=== PATIENT | female | born 1950 | race Caucasian/White ===

== ENCOUNTER 2018-08-24 13:16 | Inpatient (IN) | payer MEDICARE ==
[~2018-08-24] VITALS: Ht 170.2 cm; Wt 68.1 kg
[2018-08-24] MEDS ORDERED: COZAAR50 MG PO (13:46)
[2018-08-24] MEDS ORDERED: POTASSIUM CHLO10 ME1 PO (13:46)
[2018-08-24] MEDS ORDERED: ACETAZOLAMIDE250 MG PO (13:47)
[2018-08-24] MEDS ORDERED: BENZTROPINE MESY1 MG PO (13:47)
[2018-08-24] MEDS ORDERED: LEVOXYL25 MCG PO (13:47)
[2018-08-24] MEDS ORDERED: ADVAIR HFA 230-12 GM INH (13:48)
[2018-08-24] MEDS ORDERED: IPRAT-ALBUT 0.5-3 ML UPD (13:49)
[2018-08-24] MEDS ORDERED: INCRUSE ELLI62.5 MCG INH (13:50)
[2018-08-24] MEDS ORDERED: GINKGO BILOBA120 MG PO (13:50)
[2018-08-24] MEDS ORDERED: ZYPREXA5 MG PO (13:51)
[2018-08-24] MEDS ORDERED: HALDOL5 MG/ML IM (13:52)
[2018-08-24] MEDS ORDERED: GEODON40 MG PO (13:52)
[2018-08-24] MEDS ORDERED: COLACE100 MG PO (13:53)
--- NOTE | 2018-08-24 14:07 | NUR ---
URINE SAMPLE COLLECTED VIA CLEAN CATCH, SAMPLE SENT TO THE LAB.
--- NOTE | 2018-08-24 14:07 | NUR ---
PT MOVED TO ROOM E12 FROM ROOM T3 TO BE IN CLOSER VIEW OF THE NURSES STATION.
[2018-08-24 14:23] LABS: APPEARANCE SL CLDY (CLEAR); BILIRUBIN NEGATIVE (NEGATIVE); COLOR YELLOW (YELLOW); GLUCOSE NEGATIVE (NEGATIVE); KETONE SMALL mg/dL (NEGATIVE); NITRITE NEGATIVE (NEGATIVE); PROTEIN NEGATIVE (NEGATIVE); SPECIFIC GRAVITY 1.005 (1.005-1.020)
[2018-08-24 14:43] LABS: APTT 26.7 SECONDS (22.8-39.4); INR 1.03 (0.85-1.17)
--- NOTE | 2018-08-24 14:58 | NUR ---
PT ALERT, SITTING UPRIGHT IN BED WATCHING TV. PT CONTINUES TO REQUEST TO LEAVE AND GO SMOKE. WILL CONTINUE ATTEMPTING TO REORIENT FREQUENTLY. RESPIRATIONS EVEN AND UNLABORED. PT DENIES ANY PAIN AT THIS TIME. PT REFUSES TO KEEP VS EQUIPMENT IN PLACE, REMOVES ALL EQUIPMENT EACH TIME IT IS REAPPLIED. CALL LIGHT IN REACH, WILL CONTINUE TO MONITOR.
[2018-08-24 14:59] LABS: ALBUMIN 3.3 g/dL (3.4-5.0); ALKALINE PHOSPHATASE 112 U/L (46-116); ALT (SGPT) 16 U/L (10-68); BILIRUBIN - TOTAL 0.24 mg/dL (0.2-1.3); CALC OSMOLALITY 293 mosm/kg (275-300); CALCIUM 9.2 mg/dL (8.5-10.1); CARBON DIOXIDE 31.9 mmol/L (21.0-32.0); CHLORIDE - SERUM 109 mmol/L (98-107); CREATININE - SERUM 0.7 mg/dL (0.6-1.3); GLUCOSE 96 mg/dL (74-106); POTASSIUM - SERUM 3.6 mmol/L (3.5-5.1); PROTEIN - SERUM 7.4 g/dL (6.4-8.2); SODIUM 146 mmol/L (136-145); UREA NITROGEN 20 mg/dL (7-18); eGFR NON AFRICAN AMERICAN 88 mL/min (90-120)
[2018-08-24 15:00] LABS: CKMB 1.4 U/L (0.0-3.6); CREATINE KINASE 63 UL (21-215); MAGNESIUM - SERUM 1.8 mg/dL (1.8-2.4)
[2018-08-24 15:03] LABS: TROPONIN-I < 0.017 ng/mL (0.000-0.060)
[2018-08-24 15:06] LABS: BASOPHILS 0 % (0-2); EOSINOPHILS 0.5 % (0-7); HEMATOCRIT 39.9 % (36.0-48.0); LYMPHOCYTES 34.1 % (15-50); MCH 32.5 pg (26.0-34.0); MCHC 32.6 g/dL (31.0-37.0); MCV 99.8 fL (80.0-100.0); MEAN PLATELET VOLUME 11.4 fL (7.4-10.4); MONOCYTES 6.3 % (2-11); NEUTROPHILS 59.1 % (40-80); PLATELET COUNT 130 10x3/uL (130-400); RDW 13.6 % (11.5-14.5); WBC 6.1 10x3/uL (4.8-10.8)
[2018-08-24 15:18] VITALS: BP 144/53
--- NOTE | 2018-08-24 15:50 | NUR ---
PT RETURNED TO ED VIA STRETCHER FROM CT AT THIS TIME.
--- NOTE | 2018-08-24 16:46 | NUR ---
PT SITTING AT THE FOOT OF THE BED. RESPIRATIONS EVEN AND UNLABORED. PT REMAINS ALERT AND ORIENTED TO PERSON ONLY. VS EQUIPMENT FOUND ON FLOOR. O2 NC NOT IN PLACE. ALL REAPPLIED. TREATING PROVIDER AWARE.
--- NOTE | 2018-08-24 17:02 | NUR ---
PT PULLED OUT HER IV. TREATING PROVIDER NOTIFIED. CATHETER INTACT.
--- NOTE | 2018-08-24 18:13 | NUR ---
WILL ADMINISTER ORDERED ZITHROMAX ONCE ORDERED ROCEPHIN IS COMPLETE.
[2018-08-24 18:14] VITALS: BP 117/57
--- NOTE | 2018-08-24 18:45 | NUR ---
PT LYING IN BED, RESPIRATIONS EVEN AND UNLABORED. IV INFUSING ORDERED WITHOUT SIGNS OF INFILTRATION. NO SIGNS OF DISTRESS. WILL CONTINUE TO MONITOR.
[2018-08-24 19:00] VITALS: BP 113/64
--- NOTE | 2018-08-24 19:08 | NUR ---
HANDOFF REPORT GIVEN TO BELEM COE
[2018-08-24 20:00] VITALS: BP 135/65
--- NOTE | 2018-08-24 20:04 | NUR ---
PT BED LINEN CHANGED, CLEAN DRY BREIF PUT ON PT AND GIVEN WARM BLANKETS.
--- NOTE | 2018-08-24 20:47 | NUR ---
PT ARRIVED TO FLOOR VIA STRECHER. PT RR EVEN AND UNLABORED. PT SLEEPING AND ROLLING AROUND IN BED. PT UNABLE TO ANSWER QUESTIONS FOR HISTORY. BED ALARM IN PLACE, SIDE RAILS UP X2, CALL LIGHT WITHIN REACH. WILL CONTINUE TO MONITOR.
[2018-08-24 23:54] VITALS: BP 135/65
--- NOTE | 2018-08-25 00:11 | NUR ---
Patient remains drowsy and lethargic, PIV in right lower arm is SL, coban wrap on to hopefully promote in preventing patient from pulling same out. Refusing to answer questions, completed admit as much as able from information sent in by [facility] where patient resides. Respirations easy and regular, no signs of distress at this time.
[2018-08-25 00:30] VITALS: BP 167/75
[2018-08-25 04:34] LABS: BASOPHILS 0 % (0-2); EOSINOPHILS 1.2 % (0-7); HEMATOCRIT 36.2 % (36.0-48.0); LYMPHOCYTES 35.5 % (15-50); MCH 32.4 pg (26.0-34.0); MCHC 33.1 g/dL (31.0-37.0); MEAN PLATELET VOLUME 11.1 fL (7.4-10.4); MONOCYTES 10.8 % (2-11); NEUTROPHILS 52.5 % (40-80); PLATELET COUNT 114 10x3/uL (130-400); RDW 13.5 % (11.5-14.5)
[2018-08-25 04:49] LABS: MCV 97.8 fL (80.0-100.0)
[2018-08-25 04:50] LABS: ALBUMIN 2.6 g/dL (3.4-5.0); ALKALINE PHOSPHATASE 89 U/L (46-116); ALT (SGPT) 13 U/L (10-68); BILIRUBIN - TOTAL 0.29 mg/dL (0.2-1.3); CALC OSMOLALITY 291 mosm/kg (275-300); CALCIUM 8.9 mg/dL (8.5-10.1); CARBON DIOXIDE 27.9 mmol/L (21.0-32.0); CHLORIDE - SERUM 111 mmol/L (98-107); CREATININE - SERUM 0.6 mg/dL (0.6-1.3); GLUCOSE 88 mg/dL (74-106); POTASSIUM - SERUM 3.4 mmol/L (3.5-5.1); SODIUM 146 mmol/L (136-145); UREA NITROGEN 18 mg/dL (7-18); eGFR NON AFRICAN AMERICAN > 90 mL/min (90-120)
[2018-08-25 09:13] VITALS: BP 136/75
--- NOTE | 2018-08-25 11:52 | NUR ---
patient is up and dressed. she wants to go home. called the dr and got her home medications restarted. she is calmer now.
[2018-08-25 12:10] VITALS: BP 135/69
[2018-08-25 13:55] VITALS: Ht 170.2 cm; Wt 68.1 kg
--- NOTE | 2018-08-25 15:53 | NUR ---
NEW ORDER TO MOVE PATIENT TO ICU ON 72 HOUR HOLD FOR PHYCOSIS. SHE IS RESTING AT THIS TIME.
--- NOTE | 2018-08-25 16:02 | NUR ---
PATIENT IS GOING TO GO TO PSYCH FLOOR. THERE IS ROOM AND THEY WILL ACCEPT HER NOW. SPOKE TO MAINTENANCE GROUNDSKEEPER AND SHE IS CALLING BOB AT THIS TIME. CALLING TO GIVE REPORT AT THIS TIME. NURSE DIANA IS THE NURSE.
[2018-08-25 16:39] VITALS: BP 133/38
[2018-08-25] MEDS ORDERED: ZITHROMAX500 MG PO (17:10)
[2018-08-25] MEDS ORDERED: PROTONIX40 MG PO (17:11)
[2018-08-25] MEDS ORDERED: FLORAJEN3 CAPS460 MG PO (17:11)
[2018-08-25] MEDS ORDERED: NICOTINE PATCH TRANSDERM (17:15)
--- NOTE | 2018-08-25 17:49 | NUR ---
I have reviewed this patient and I concur with the Shift Assessment completed by the Licensed Practical Nurse today this shift.
--- NOTE | 2018-08-25 17:54 | NUR ---
WILL COSIGN WITH A SECOND NURSE BECAUSE PATIENT IS UNABLE TO SIGN DISCHARGE PAPER WORK AT THIS TIME. WHEN ATTEMPTING TO CONTACT FAMILY , THE NUMBER LISTED WAS FOUND TO NOT BE VALID. TONY BERG IS AWARE. DR HERNANDEZ IS AWARE OF TRANSFER, AND NURSE IN PSYCH HAS BEEN GIVEN REPORT. IV REMOVED FROM PATIENTS ARMS AND ANTIBIOTICS HAVE BEEN CHANGED TO P.O. IV REMOVED FROM LEFT ARM WITH CATHETER INTACT. PATIENT TOLERATED. ALL PATIENT BELONGINGS HAVE BEEN GATHERED AND SHE WILL GO DOWNSTAIRS IN A WHEEL CHAIR WITH ASSISTANCE.
--- NOTE | 2018-08-25 18:11 | NUR ---
PATIENT HAS BEEN DISCHARGED TO PSYCH FLOOR. ALL BELONGINGS HAVE BEEN REMOVED FROM THE ROOM. SHE IS BEING BROUGHT DOWN IN A WHEEL CHAIR BY STAFF. SHE IS SMILING AND BEING AGREEABLE AT THIS TIME.
--- NOTE | 2018-08-27 09:15 | MORECARE ---
CASE MANAGEMENT DISCHARGE SUMMARY PATIENT: OMARI HARLEY UNIT: [id number] ADM DATE: 08/24/18 AGE: 67 : 48 SEX: F ROOM/BED: D.2103 AUTHOR: LEENA MCDERMOTT PHYSICIAN: REFERRING PHYSICIAN: JAMES HERNANDEZ MD DATE OF SERVICE: 08/27/18 Discharge Plan Patient Name: OMARI HARLEY [facility] [facility] 1950 Planned Disposition: Psych facility Anticipated Discharge Date: 08/25/18 Discharge Date: 08/25/2018 Expected LOS: 1 Initial Reviewer: [email or web address] Initial Review Date: 08/27/2018 Generated: 08/27/18 10:14 am Patient Name: OMARI HARLEY Page [id number] at 0915 All edits/amendments must be made on the electronic document DICTATION DATE: 08/27/18913 COATING MANAGER: ADONAY 08/27/18913 RPT#: [id number] DC DATE:08/25/18 STATUS: DIS IN [facility] [address] [place] [address] END OF REPORT
== END 2018-08-25 18:12 | disposition short-term general hospital (02) | DRG 193 ==
LOC: D.ER 13:16 → D.EDHOLD 18:54 → D.M2 18:54
PROVIDERS: Family Medicine; ADMIT Internal Medicine Nephrology; ATTEND Internal Medicine Nephrology
DX: J18.1 Lobar pneumonia, unspecified organism (principal); G92 Toxic encephalopathy; J44.1 Chronic obstructive pulmonary disease with (acute) exacerbation; J44.0 Chronic obstructive pulmonary disease with (acute) lower respiratory infection; F17.213 Nicotine dependence, cigarettes, with withdrawal; I10 Essential (primary) hypertension; F20.9 Schizophrenia, unspecified; E04.9 Nontoxic goiter, unspecified; K59.09 Other constipation

== ENCOUNTER 2018-08-25 16:42 | Inpatient (IN) | payer MEDICARE ==
[~2018-08-25] VITALS: Ht 162.6 cm; Wt 68.0 kg
--- NOTE | ~2018-08-25 | PN ---
PATIENT:OMARI AHRLEY MEDICAL RECORD: [id number] LOCATION:[facility] ADMISSION DATE: 08/25/18 PROGRESS NOTE DATE OF SERVICE: 09/01/2018 SUBJECTIVE: Ms. Harley is a 68-year-old female with a long history of schizophrenia who came to the hospital secondary to right lower lobe pneumonia. While up on the floor, she became increasingly paranoid, refusing standard bed and was transferred down here. The patient's behavior is more labile now. One interview in nursing notes even just a few hours ago, she was pleasant, cooperative, but by the time I saw her, she was irritable, paranoid. She had tripped and she had felt like someone was holding her knees and that tripped her on purpose. Nursing notes that she is having auditory or visual hallucinations and gradually changing her medication to a single regimen medication that she was on 3 low dose antipsychotics and have selected Zyprexa. She is currently on a total of 20 of Zyprexa now, 5 in the morning, 15 at night and she is down at 20 mg of Geodon. She is eating 30, 10 and 100%. Last bowel movement was on the 20th and sleeping 7.75 hours. OBJECTIVE: LATEST VITAL SIGNS: 97.7, 88, 18, 102/46, 95%. ASSESSMENT: Unchanged. PLAN: We will continue current dosing, olanzapine was just increased yesterday and monitor trend and paranoid behaviors and adjust Geodon. TRANSINT:[id number] Voice Confirmation ID: [id number] DOCUMENT ID: [id number] ROSI HI MD CC: [id number] DICTATION DATE: 09/01/18 1347 LEAF TINNER: 09/01/18 1453 ADM IN [place] [id number] [place] [address]
[~2018-08-25 16:42] MED LIST: ACETAZOLAMIDE250 MG PO; ADVAIR HFA 230-12 GM INH; BENZTROPINE MESY1 MG PO; COLACE100 MG PO; COZAAR50 MG PO; GEODON40 MG PO; GINKGO BILOBA120 MG PO; HALDOL5 MG/ML IM; INCRUSE ELLI62.5 MCG INH; IPRAT-ALBUT 0.5-3 ML UPD; LEVOXYL25 MCG PO; POTASSIUM CHLO10 ME1 PO; ZYPREXA5 MG PO
[2018-08-25] MEDS ORDERED: ZITHROMAX500 MG PO (17:10)
[2018-08-25] MEDS ORDERED: PROTONIX40 MG PO (17:11)
[2018-08-25] MEDS ORDERED: FLORAJEN3 CAPS460 MG PO (17:11)
[2018-08-25] MEDS ORDERED: NICOTINE PATCH TRANSDERM (17:15)
[2018-08-25 18:25] VITALS: BP 133/74; BMI 23.5
--- NOTE | 2018-08-25 19:30 | NUR ---
The patient is admitted to [facility] from Med/Surg. She is delusional and talking monsensical. She is labile, yells and points her finger at times and she is pleasant at other times. She can ambulate, but she is unsteady. She does not want anyone to know she is here. Med/Surg nurse Macrina tried to call her family. Dr. Roberts did put her on a 72 hour hold, but the patient did consent to be on this unit. She does have shoe laces in her tennis shoes and she had 2 lighters in her pockets. She has a couple of purses. The patient has wheezes in her right lower lobe. She is shown to her room as she does not feel well, she is weak.
[2018-08-25 20:57] VITALS: BP 152/82
--- NOTE | 2018-08-26 03:25 | NUR ---
B) Patient is alert and oriented to person and place, very confused, jumping from subject to subject , restless at times, wanting to smoke, hungry and wanting dinner I) Administered scheduled medications as ordered, found her some snacks , redirected as needed, R) Mediation compliant, liable and confused, P) Continue plan of care.
[2018-08-26 07:04] LABS: LDL-HDL RATIO 1.6 ratio (1.5-3.5); THYROID STIMULATING HORMONE 4.55 uIU/mL (0.36-3.74)
--- NOTE | 2018-08-26 07:45 | NUR ---
PT IS ALERT AND ORIENTED TO PERSON AND PLACE. VERY CONFUSED AND RESTLESS AT THIS TIME. PT CALM AND COOPERATIVE WITH ASSESSMENT. REDIRECT AND REORIENT NEEDED. PRESCRIBED MEDS PROVIDED. MED COMPLIANT. FALL PRECAUTIONS IN PLACE. WILL CONTINE TO MONITOR Q 15 MINUTESA FOR SAFETY. WILL CPOC.
[2018-08-26 20:19] VITALS: BP 132/61
[2018-08-27 07:53] VITALS: BP 110/65
[2018-08-27 11:45] VITALS: BMI 23.5
--- NOTE | 2018-08-27 13:16 | NUR ---
B) PT IS AWAKE AND ALERT X 3. DENIES ANY THOUGHTS OF SELF HARM. I) PRESCRIBED MED PROVIDED R) MED COMPLIANT P) WILL CPOC
[2018-08-27 14:21] VITALS: Ht 162.6 cm; Wt 68.0 kg
[2018-08-27 22:18] VITALS: BP 117/64
--- NOTE | 2018-08-28 00:12 | NUR ---
PATIENT IS COOPERATIVE, CONFUSED AT TIMES, COMPLIANT WITH MEDS, STAYS TO HERSELF EVEN WHEN SHE'S IN A GROUP. NO ADVERSE REACTION NOTED. WILL FOLLOW POC
[2018-08-28 07:31] LABS: RAPID PLASMA REAGIN Non Reactive (Non Reactive)
--- NOTE | 2018-08-28 08:30 | NUR ---
PATIENT IS AWAKE AND ALERT X 3. SHE DENIES ANY SELF-HARM. REDIRECT AND REORIENT NEEDED. ADMINISTER SCHEDULED MEDICATIONS. CONPLIANT WITH MEDS. WILL CONTINUE POC.
[2018-08-28 08:47] VITALS: BP 145/73
[2018-08-28 09:21] LABS: FOLATE (FOLIC ACID) - SERUM 16.7 ng/mL (>3.0)
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
--- NOTE | 2018-08-28 16:25 | PN ---
PATIENT:OMARI HARLEY MEDICAL RECORD: [id number] LOCATION:[facility] ADMISSION DATE: 08/25/18 PROGRESS NOTE DATE OF SERVICE: 08/27/2018 SUBJECTIVE: Ms. Harley is a 67-year-old female admitted secondary to confusion, delusions, paranoia. She is tangential. She originally got admitted for pneumonia, UTI, but was unable secondary to her psychosis to remain in the hospital bed. She, according to nursing report, is quite psychotic, looming over other patients, voluminous word content as is present during interview. She is eating 100% of meals. Slept 7-1/2 hours. OBJECTIVE: LATEST VITAL SIGNS: 98.1, 75, 18, 110/65, and a pulse ox of 98%. ASSESSMENT: Unchanged. PLAN: We will increase Zyprexa from 5 b.i.d. to 5 in the morning and 10 at night. We will assess response. As the patient starts to respond better, plan is to decrease Geodon. Case discussed with nursing. Chart reviewed and the patient interviewed. TRANSINT:[id number] Voice Confirmation ID: [id number] DOCUMENT ID: [id number] ROSI HI MD at 1625 CC: [id number] DICTATION DATE: 08/27/18 1308 SHED HAND: 08/27/18 1318 ADM IN [place] [id number] [place] [id number]
[2018-08-28 19:49] VITALS: BP 155/77
--- NOTE | 2018-08-29 04:19 | NUR ---
B) Patient is alert and oriented to person and being in a hospital, calm and cooperative, evelinews instructions, no aggression noted, I) Administered scheduled medications as ordered, monitored for safety, R) Mediation compliant, calm and follws unit milieu P) Continue plan of care.
[2018-08-29 08:12] VITALS: BP 129/71
--- NOTE | 2018-08-29 08:45 | NUR ---
B) PATIENT IS ALERT, ISOLATES HERSELF FROM PEERS. CALM AND COOPERATIVE WITH ASSESSMENT. I) PRESCRIBED MEDICATIONS PROVIDED. R) COMPLIANT WITH MEDICATIONS. P) WILL CONTINUE PLAN OF CARE.
[2018-08-29 19:53] VITALS: BP 132/73
--- NOTE | 2018-08-30 01:08 | NUR ---
B) Patient is alert and oriented to person and place, calm and cooperative, I) Administered scheduled medications as ordered, monitored for safety, redirected as needed, R) Medication compliant, social with staff, P) Continue plan of care.
[2018-08-30 09:51] VITALS: BP 96/64
[2018-08-30 10:06] VITALS: BP 96/64
--- NOTE | 2018-08-30 10:41 | NUR ---
RECEIVED PATIENT IN DINING ROOM FOR B'FAST, ALERT, CALM AT THIS TIME, QUIET, ISOLATES SELF AWAY FROM OTHER PATIENTS. MEDS ADMIN PER ORDERS WITH COMPLETE MED COMPLIANCE NOTED. COOPERATIVE WITH GROUP AND STAFF. CONT POC INCLUDING MEDS AND GROUP THERAPY DIRECTED.
--- NOTE | 2018-08-30 15:23 | NUR ---
Nutrition Follow Up: Chart reviewed Diet: AHA PO Intake: 97% meal avg Meds and labs reviewed Rec continue current diet. RD following.
--- NOTE | 2018-08-30 17:47 | PN ---
PATIENT:OMARI HARLEY MEDICAL RECORD: [id number] LOCATION:[facility] ADMISSION DATE: 08/25/18 PROGRESS NOTE DATE OF SERVICE: 08/28/2018 SUBJECTIVE: Ms. Harley is a 67-year-old female from [place], who had been admitted secondary to right lower lobe pneumonia and a possible UTI. While being treated up on the floor, the patient became agitated multiple times, attempted to leave, and was reporting paranoia. She is confused, delusional; however, her thought process seems to be improving today. I am able to follow her thought process for the first time. She continues to believe that she is being poisoned and was able to tell me she thought that because her neck is stiff at times, so although delusional, the thought process is improving. Nursing reports that her cough frequency and intensity are lessening. OBJECTIVE: VITAL SIGNS: 98.6, 75, 18, 145/73, and 95%. ASSESSMENT: Schizophrenia, paranoia continuous event, major neurocognitive disorder with psychosis. PLAN: Continue current meds. Continue to monitor for aggression and agitation. [place], who has been contacted and said that the patient has some degree of baseline paranoia. Continue to monitor for paranoia, psychosis. Anticipated discharge in the next few days. Case discussed with nursing. Chart reviewed and patient interviewed. TRANSINT:[id number] Voice Confirmation ID: [id number] DOCUMENT ID: [id number] ROSI HI MD at 1747 CC: [id number] DICTATION DATE: 08/28/18 1706 AMORTIZATION SCHEDULE CLERK: 08/28/18 2204 ADM IN [place] [id number] [place] [address]
--- NOTE | 2018-08-30 17:47 | PN ---
PATIENT:OMARI HARLEY MEDICAL RECORD: [id number] LOCATION:[facility] ADMISSION DATE: 08/25/18 PROGRESS NOTE DATE OF SERVICE: 08/29/2018 SUBJECTIVE: Ms. Harley is a 67-year-old female who was admitted from the floor after she was paranoid and agitated, unable to stay in her bed because of her paranoia while being treated for right lower lobe pneumonia. Today, nursing reports that the patient is more understandable than previous. Previously, it was basically word salad, but she is isolative. Today on my interview, the patient more hostile than usual. She was insistent that basically we were trying to poison her and mentioned something about her meds, but again it was difficult to follow her thought process. She is eating 75% to 100%. She slept 7.25 hours. Her last bowel movement was on the . OBJECTIVE: VITAL SIGNS: [facility] latest vitals are temperature 98.2, heart rate 110, respiratory rate 20, blood pressure 129/71, and oxygen saturation 94%. ASSESSMENT: Unchanged. PLAN: We will decrease vitamin D from [address] units. marble worker to call the patient's facility and see what her best functioning has been last 2 years and will try to adjust meds. The patient continues, however, to be paranoid. I want to get a better baseline from them for best medication regimen possible. Case discussed with nursing. Chart was reviewed and the patient interviewed. TRANSINT:[id number] Voice Confirmation ID: [id number] DOCUMENT ID: [id number] ROSI HI MD at 1747 CC: [id number] DICTATION DATE: 08/29/18 1305 ELECTRICAL APPLIANCE PREPARER: 08/29/18 1516 ADM IN [place] [id number] [place] [address]
--- NOTE | 2018-08-30 18:37 | NUR ---
Patient observed talking to unseen others.
--- NOTE | 2018-08-31 02:57 | NUR ---
B) Patient is alert and oriented to person and place, calm and cooperative this shift, follows instruction, I) Administered scheduled medications as ordered, monitored for safety and for needs, R) Medication compliant, follow unit milue, P) continue plan of care.
[2018-08-31 09:15] VITALS: BP 111/56
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
[2018-08-31 20:40] VITALS: BP 126/63
--- NOTE | 2018-09-01 00:43 | NUR ---
PATIENT IS TALKING TO HERSELF, SHE STATED THAT SHE WAS NOT OMARI, THAT SHE HASN'T DEDIDED YET. COMPLIANT WITH MEDS. NO ADVERSE REACTION NOTED. WILL FOLLOW POC
[2018-09-01 08:00] VITALS: BP 102/46
--- NOTE | 2018-09-01 12:22 | NUR ---
THE PATIENT IS NOTED TALKING TO HERSELF, SHE IS PLEASANT, SHE SITS IN THE BACK OF THE ROOM, SOCIALIZES WITH STAFF, BUT NOT OTHER PATIENTS. SHE DOES SAY SOME OFF THE WALL THINGS. SHE ASKED ME "ARE YOU FROM [facility]?" ASKED HER WHAT SHE MEANT. SHE JUST SMILED AT ME. PROVIDE PRESCRIBED MEDS. THE PATIENT IS COMPLIANT WITH MEDS. CONTINUE POC.
--- NOTE | 2018-09-01 12:52 | PN ---
PATIENT:OMARI HARLEY MEDICAL RECORD: [id number] LOCATION:[facility] ADMISSION DATE: 08/25/18 PROGRESS NOTE DATE OF SERVICE: 08/30/2018 SUBJECTIVE: Ms. Harley is a 67-year-old female with long history of schizophrenia, who according to dependency case manager, who talked to [facility], her living facility, has had a long history of schizophrenia, but recently has become more and more unstabilized. They state her baseline is some hallucinations, but generally fairly pleasant, communicative. The patient does seem better today. She in contrast to just a few days ago, which she snapped and accused me of poisoning her. She is now smiling, pleasant. She does not believe anybody has ever tried to poison her. She is eating 100% of all meals. Last BM on the . Slept 7.75 hours. OBJECTIVE: LATEST VITAL SIGNS: 98.2, 104, 18, 96/64, 96%. ASSESSMENT: Unchanged. PLAN: As pursuant to my previous plan and one on her care facility has agreed to, we will try to simplify her medication list. We will go with olanzapine now at 15 mg a day and start tapering off Geodon. We will continue to monitor for any aggression, psychosis, and get the patient back to her facility baseline on a simpler medication regimen. Case discussed with nursing, chart reviewed, and patient and reviewed. TRANSINT:[id number] Voice Confirmation ID: [id number] DOCUMENT ID: [id number] ROSI HI MD at 1252 CC: [id number] DICTATION DATE: 08/30/18 173 STAMPING MILL TENDER: 08/30/18 2148 ADM IN [facility] [address] [place] [address]
--- NOTE | 2018-09-01 12:52 | PN ---
PATIENT:OMARI HARLEY MEDICAL RECORD: [id number] LOCATION:[facility] ADMISSION DATE: 08/25/18 PROGRESS NOTE DATE OF SERVICE: 08/31/2018 SUBJECTIVE: Ms. Harley is a 68-year-old female who was admitted from the floor for having right lower lobe pneumonia, but with paranoid delusions, aggression, agitation, and could not keep her in bed. The patient is somewhat labile in her presentation. Yesterday, she was fairly calm, pleasant. Today, irritable "leave me alone, you are keeping me here in group home" and after that refused to talk to me. I had decreased her Geodon in an attempt to get her therapy with 1 antipsychotic. She is eating 30%, 10%, and 100%. Last bowel movement on . Sleeps 9 hours. OBJECTIVE: Her latest vitals are temperature 98.1, pulse 98, respirations 20, blood pressure 111/56, and oxygen saturation 97% on room air. ASSESSMENT: Unchanged. PLAN: We will increase olanzapine to 5 mg morning and 15 mg at night with the plan to totally stop Geodon tomorrow. Case discussed with nursing. Chart reviewed and the patient interviewed. TRANSINT:[id number] Voice Confirmation ID: [id number] DOCUMENT ID: [id number] ROSI HI MD at 1252 CC: [id number] DICTATION DATE: 08/31/18 1420 BRUSHER HAND: 08/31/18 1446 [place] [address]
--- NOTE | 2018-09-01 14:23 | NUR ---
PATIENT NOTED TO BE HAVING CONVERSATION WITH UNSEEN PERSON.
--- NOTE | 2018-09-01 14:40 | NUR ---
THE PATIENT MADE AN OFFENSIVE REMARK TO ANOTHER PATIENT WHO HAD HER HANDS IN HER POCKETS THAT WALKED UP TO HER. THIS PATIENT SAID "QUIT TOUCHING YOUR PUSSY WHEN YOU STAND BY ME." EXPLAINED TO THE PATIENT THAT SHE IS NOT TOUCHING HERSELF AND THAT WHAT SHE SAID IS INAPPROPRIATE. THIS COMMENT MADE THE PATIENT IRRITABLE AND SHE WALKED INTO THE OTHER ROOM. SHE HAS BEEN TALKING TO UNSEEN OTHERS AND SHE HAS BEEN SAYING THINGS THAT ARE NOT MAKING ANY SENSE.
--- NOTE | 2018-09-01 17:01 | NUR ---
Patient cont to hallucinate, speaking and cursing at unseen persons. Often tells this nurse bazarre stories that could not possibly be factual.
[2018-09-01 20:52] VITALS: BP 140/70
--- NOTE | 2018-09-01 21:23 | NUR ---
PATIENT IS AGITATED THIS EVENING. SHE HAS SAID "IM NOT STAYING HERE FOR GREGG, IM GOING HOME AND HAVING A SURGERY THAT I HAVE NEEDED FOR 700 YEARS". COMPLIANT WITH MEDS. NO ADVERSE SIDE EFFECTS. WILL FOLLOW POC
[2018-09-02 07:43] VITALS: BP 112/59
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
--- NOTE | 2018-09-03 01:40 | NUR ---
B) Spent most of the evening sitting alone in the dining room. Refused to go into the Day room where her peers were. Angry and agitated, refused to take any of her medications, told staff to take them instead. Wandering back and forth near back door every so often. Stating she was waiting for her ride to take her home. Shayne, initially refused to come down the ho to her room. With more than one staff asking, she finally agreed to walk down to nursing station. Here she stood in the hallway staring at others for a period of time. Did not socialize, just watched. Finally retired to her room but kept the light on. I) Educate on benefits of taking her medications as ordered, monitor for changes in behavior, redirect as needed, reorient as needed. R) Agitated, angry, verbally threatening, states she is going to call her passenger rate clerk to joyce staff here. Confused as to situation. Denies her disease process and denies her need for treatment. P) Continue to provide care as per plan of care.
[2018-09-03 07:29] VITALS: BP 114/67
--- NOTE | 2018-09-03 09:15 | NUR ---
PATIENT IS AWAKE AND ALERT. CALM AMD COOPERATIVE WITH ASSESSMENT AND CARE. REDIRECT AND REORIENT NEEDED. MEDICATION COMPLIANT. WILL CONTINUE PLAN OF CARE.
--- NOTE | 2018-09-04 03:45 | NUR ---
B) Patient is alert and oriented to self, paranoid and hallucinating, restless and bizaar at times, I) Administered scheduled medications as ordered, monitored for safety, redirected as needed, R) Mediation compliant, restless and pacing, P) Continue plan of care.
--- NOTE | 2018-09-04 06:49 | PN ---
PATIENT:OMARI HARLEY MEDICAL RECORD: [id number] LOCATION:[facility] ADMISSION DATE: 08/25/18 PROGRESS NOTE DATE OF SERVICE: 09/03/2018 SUBJECTIVE: The patient's case was discussed with staff. He has no new complaint. OBJECTIVE: The patient is generally tolerating his medications well. He has pretty limited insight about his situation. I do not observe any overt psychotic symptoms. He does have some disorganized thought processes. ASSESSMENT: No change in diagnoses. PLAN: The patient's Zyprexa is going to be tapered downward. I do plan to stop it and manage him on a single antipsychotic. TRANSINT:[id number] Voice Confirmation ID: [id number] DOCUMENT ID: [id number] FREDDIE ESCOBEDO MD at 0649 CC: [id number] DICTATION DATE: 09/03/18 1737 ROTARY OPERATOR: 09/03/182004 ADM IN [facility] [address] [place] [address]
[2018-09-04] MEDS ORDERED: CLOTRIM ANTIFUN15 GM TOPICAL (07:03)
[2018-09-04] MEDS ORDERED: VITAMIN D5000 UNIT PO (07:03)
[2018-09-04 07:47] VITALS: BP 119/72
--- NOTE | 2018-09-04 10:00 | NUR ---
PATIENT IS ALERT AND ORIENTED TO SELF. SHE IS LESS PARANOID TODAY. SHE AMBULATES INDEPENDENTLY. NO AGGRESSION NOTED. WILL CPOC.
--- NOTE | 2018-09-04 17:23 | NUR ---
PATIENT BECOMING INCREASINGLY AGITATED, LOOKING OUT WINDOW AND SPEAKING TO UNSEEN INDIVIDUAL. RESTLESS, ROCKING BACK AND FORTH, MUMBLING ALOUD, WHEN ALL AT ONCE, SHE MADE A QUICK BITING/GROWLING MOVEMENT OVER HER LEFT SHOULDER. OCCASIONALLY STOMPS FOOT.
--- NOTE | 2018-09-04 17:53 | NUR ---
PATIENT BURPED QUITE LOUDLY TWICE AND STATED, "CONCRETE IS GOING DOWN MY THROAT."
--- NOTE | 2018-09-05 03:10 | NUR ---
RECEIVED IN PATIENT ROOM. GETTING READY FOR BED. CALM AND COOPERATIVE WITH CARE AND ASSESSMENT. NO PARANOIA THIS EVENING. REDIRECT AND REORIENT NEEDED. RESTING IN BED WITH EYES CLOSED AT THIS TIME. CONTINUE PLAN OF CARE.
--- NOTE | 2018-09-05 09:00 | NUR ---
PATIENT IS AWAKE AND ALERT, CALM AND COOPERATIVE WITH CARE AND ASSESSMENT. SHE IS HALLUCINATING, AND TALKING TO HERSELF. WILL CONTINUE TO MONMITOR.
[2018-09-05 09:06] VITALS: BP 110/58
--- NOTE | 2018-09-05 09:52 | NUR ---
Nutrition Follow Up: Chart reviewed Diet: AHA PO Intake: 97% meal avg BM: 08/25/18 - no BM x 11 days?? Meds and labs reviewed Rec continue current diet. Rec consider bowel regimen. RD following.
--- NOTE | 2018-09-05 13:51 | PN ---
PATIENT:OMARI HARLEY MEDICAL RECORD: [id number] LOCATION:[facility] ADMISSION DATE: 08/25/18 PROGRESS NOTE DATE OF SERVICE: 09/04/2018 SUBJECTIVE: The patient's case was discussed with staff. She has no new complaint. OBJECTIVE: The patient has disorganized thought processes, but has not been openly aggressive today. She also is not grossly disorganized. ASSESSMENT: Paranoid schizophrenia. PLAN: At this time, the patient will be maintained on current medications and I anticipate she can reasonably be transitioned out of the hospital soon if this level of improvement continues. TRANSINT:[id number] Voice Confirmation ID: [id number] DOCUMENT ID: [id number] FREDDIE ESCOBEDO MD at 1351 CC: [id number] DICTATION DATE: 09/04/18 0700 SENIOR PRODUCT MARKETING MANAGER: 09/04/18 1107 ADM IN [place] [id number] [place] [id number]
--- NOTE | 2018-09-05 18:00 | NUR ---
PATIENT HAS CONTINUED TO EXPERIENCE HALLUCINATIONS ALL SHIFT, SPEAKING TO PERSONS VISIBLE ONLY TO HERSELF.
--- NOTE | 2018-09-05 18:25 | NUR ---
SITTING IN CHAIR IN DAYROOM, WHEN APPROACHED BY AN ENCROACHING PATIENT, PATIENT BEGAN KICKING AT AND YELLING AT THE PATIENT TO STAY AWAY. THIS NURSE INTERVENED AND ASSISTED THE ENCROACHING PATIENT BACK TO HER SEAT.
--- NOTE | 2018-09-05 18:40 | NUR ---
PATIENT BURPING ALOUD AND LAUGHING QUITE LOUDLY ABOUT THE MATTER.
[2018-09-05 19:53] VITALS: BP 134/81
--- NOTE | 2018-09-05 20:34 | NUR ---
RECEIVED IN DAYROOM. SITTING IN CHAIR AND SOCIALIZING WITH PEERS. CALM AND COOPERATIVE WITH CARE AND ASSESSMENT. NO SIGNS OF HALLUCINATIONS NOTED THIS EVENING. REDIRECT AND REORIENT NEEDED. CONTINUE TO SOCIALIZE WITH PEERS AT THIS TIME. CONTINUE PLAN OF CARE.
--- NOTE | 2018-09-06 08:03 | NUR ---
B) THE PATIENT IS INHER OWN WORLD AT THIS TIME. SHE IS NOT RESPONDING TO STAFF WHEN THEY SPEAK TO HER, WHEN STAFF ASKED HER IF THEY CAN LISTEN TO HER LUNGS, SHE FLUNG HER JACKET OPEN ABRUPTLY. SHE AMBULATES INDEPENDENTLY. SHE IS HAVING AUDITORY HALLUCINATIONS, UNSURE ABOUT VISUAL THIS AM. I) PROVIDE PRESCRIBED MEDS, REDIRECT NEEDED TO APPROPRIATE BEHAVIOR. R) THE PATIENT IS QUIET THIS AM, SHE IS KEEPING HER EYES CLOSED AT TIMES AND LOOKS AROUND AT OTHER TIMES. P) CONTINUE POC.
[2018-09-06 08:23] VITALS: BP 105/57
[2018-09-06 20:20] VITALS: BP 142/59
--- NOTE | 2018-09-07 04:24 | NUR ---
B) Patient is alert and oriented to self, keeping to herself in her own world, I) Administered scheduled medications as ordered, monitored for safety, redirected as needed, R) Mediation compliant, self isolating, P) Continue plan of care.
--- NOTE | 2018-09-07 07:35 | NUR ---
THE PATIENT IS SITTING QUIETLY IN THE HALLWAY ROCKING, SHE IS ORIENTED TO HERSELF. SHE IS IN HER OWN WORLD, SHE LISTENS TO HER VOICES. PROVIDE PRESCRIBED MEDS. THE PATIENT IS COMPLIANT WITH MEDS. CONTINUE POC.
[2018-09-07 09:26] VITALS: BP 100/56
--- NOTE | 2018-09-07 14:13 | PN ---
PATIENT:OMARI HARLEY MEDICAL RECORD: [id number] LOCATION:[facility] ADMISSION DATE: 08/25/18 PROGRESS NOTE DATE OF SERVICE: 09/06/2018 SUBJECTIVE: The patient's case was discussed with staff. She has no new complaint. OBJECTIVE: The patient is less delusional. She says that the shot in her hip has been helpful, which I do not think is the case. It has not had much of an opportunity to be helpful, but at any rate that is what she thinks. ASSESSMENT: Paranoid schizophrenia. PLAN: Current medicines and therapies have been reviewed and will be maintained. Long-term prognosis is guarded. TRANSINT:[id number] Voice Confirmation ID: [id number] DOCUMENT ID: [id number] FREDDIE ESCOBEDO MD at 1413 CC: [id number] DICTATION DATE: 09/06/18 1500 UNEMPLOYMENT BENEFITS CLAIMS TAKER: 09/06/18 1507 ADM IN [place] [id number] [place] [address]
--- NOTE | 2018-09-07 14:13 | PN ---
PATIENT:OMARI HARLEY MEDICAL RECORD: [id number] LOCATION:[facility] ADMISSION DATE: 08/25/18 PROGRESS NOTE DATE OF SERVICE: 09/05/2018 SUBJECTIVE: The patient's case was discussed with staff. She has no new complaint. OBJECTIVE: The patient is very delusional. She is talking in a bizarre and disorganized way. She denies any active thoughts of harming herself, but appears extremely impaired. ASSESSMENT: No change in diagnoses. PLAN: Current medicines have been reviewed. I am going to start her on Haldol Decanoate at a dose of 50 mg monthly. TRANSINT:[id number] Voice Confirmation ID: [id number] DOCUMENT ID: [id number] FREDDIE ESCOBEDO MD at 1413 CC: [id number] DICTATION DATE: 09/05/18 1543 DIAMOND SANDER: 09/05/18 2303 ADM IN [place] [id number] [place] [address]
[2018-09-07 19:20] VITALS: BP 141/76
--- NOTE | 2018-09-08 03:14 | NUR ---
B) Received sitting in Day Room, same room as peers today, usually sits in another room or stands in the hallway away from others. Is sitting alone at the end of the room, talking and mumbling to herself. I) Administer medications as ordered, monitor for hallucinations and attempt refocus on reality. R) Compliant with medications, experiencing and responding to auditory hallucinations. P) Continue to monitor per plan of care.
[2018-09-08 10:04] VITALS: BP 105/60
--- NOTE | 2018-09-08 10:47 | PN ---
PATIENT:OMARI HARLEY MEDICAL RECORD: [id number] LOCATION:[facility] ADMISSION DATE: 08/25/18 PROGRESS NOTE DATE OF SERVICE: 09/07/2018 SUBJECTIVE: The patient's case was discussed with staff. She has no new complaint. OBJECTIVE: The patient has significantly improved since receiving her first dose of Haldol decanoate. She still is delusional and paranoid, but the intensity has significantly lessened. ASSESSMENT: Paranoid schizophrenia. PLAN: Current medicines have been reviewed and will be maintained. Supportive and educational interventions were made. TRANSINT:[id number] Voice Confirmation ID: [id number] DOCUMENT ID: [id number] FREDDIE ESCOBEDO MD at 1047 CC: [id number] DICTATION DATE: 09/07/18 1557 TUBE MILL OPERATOR: 09/07/18 2314 ADM IN [place] [id number] [place] [id number]
--- NOTE | 2018-09-08 10:55 | NUR ---
B) THE PATIENT WAS IRRITABLE THIS AM, SHE WAS UPSET THAT THIS NURSE INTERRUPTED HER FROM HER THINKING, UNSURE, SHE DID TELL ME WHAT WAS BOTHERING HER AND I SAID "EXCUSE ME, I DON'T UNDERSTAND" SHE SAID IT AGAIN AND I STILL DID NOT UNDERSTAND. THIS NURSE LET HER EAT HER BREAKFAST IN PEACE AND LEFT HER ALONE. AFTER BREAKFAST SHE IS MUCH MORE PLEASANT AND SMILING AND TALKING WITH A BIT MORE SENSE. I) PROVIDE PRESCRIBED MEDS, REDIRECT NEEDED. R) THE PATIENT IS COMPLIANT WITH MEDS. P) CONTINUE POC.
--- NOTE | 2018-09-08 15:46 | NUR ---
THE PATIENT SITS AWAY FROM THE OTHER PATIENTS AND SHE TALKS TO HERSELF. SHE SOMETIMES WILL INTERACT WITH STAFF OR OTHER PATIENTS, BUT USUALLY SHE IS IN HER OWN WORLD.
--- NOTE | 2018-09-08 16:52 | NUR ---
SITTING IN CHAIR IN DAYROOM, TALKING ALOUD TO UNSEEN OTHERS AND WILDLY THRASHING ARMS OVER HER HEAD.
[2018-09-08 19:58] VITALS: BP 98/79
--- NOTE | 2018-09-09 02:52 | NUR ---
B) Patient is alert and oriented to person and place, calm and cooperative this shift, no hallucinations noted, I) Administered scheduled medications as ordered, redirected as needed, R) Mediation compliant, resting quietly in her bed now, P) Continue plan of care.
--- NOTE | 2018-09-09 09:44 | PN ---
PATIENT:OMARI HARLEY MEDICAL RECORD: [id number] LOCATION:[facility] ADMISSION DATE: 08/25/18 PROGRESS NOTE DATE OF SERVICE: 09/08/2018 SUBJECTIVE: The patient's case was discussed with staff. She has no new complaint. OBJECTIVE: The patient is in good behavioral control with limited insight about her condition. She is tolerating her medicines well and continues to speak in a delusional, disorganized way. ASSESSMENT: Paranoid schizophrenia. PLAN: The patient had her long-acting injection. She will be monitored for clinical changes associated with its use. She will be maintained on the oral Geodon for the time being. Her long-term prognosis is guarded. TRANSINT:[id number] Voice Confirmation ID: [id number] DOCUMENT ID: [id number] FREDDIE ESCOBEDO MD at 0944 CC: [id number] DICTATION DATE: 09/08/18 1054 EXTENSION FORESTER: 09/08/18 1116 ADM IN [place] [id number] [place] [address]
[2018-09-09 15:58] VITALS: BP 107/53
--- NOTE | 2018-09-09 16:26 | NUR ---
CONFUSED.FREQUENT AUDITORY AND VISUAL HALLUCINATIONS OBSERVED.COMPLIANT WITH STAFF AND MEDS.WILL CONTINUE WITH PLAN OF CARE,MONITOR FOR CHANGES AND SAFETY.
--- NOTE | 2018-09-09 18:28 | NUR ---
PLEASANT, COOPERATIVE THIS SHIFT. HOWEVER, PATIENT HAS EXPERIENCED HALLUCINATIONS EVIDENCED BY HAVING CONVERSATIONS WITH UNSEEN INDIVIDUALS.
[2018-09-09 20:21] VITALS: BP 140/78
--- NOTE | 2018-09-09 21:21 | NUR ---
RECEIVED IN DAYROOM. SITTING IN CHAIR AND SOCIALIZING WITH STAFF AND PEERS. CALM AND COOPERATIVE WITH CARE AND ASSESSMENT. NO SIGNS OF HALLUCINATIONS. NO SEXUALLY INAPPROPRIATE STATEMENTS. REDIRECT AND REORIENT NEEDED. CONTINUES TO SIT AND SOCIALIZE AT THIS TIME. CONTINUE PLAN OF CARE.
[2018-09-10 08:52] VITALS: BP 103/46
--- NOTE | 2018-09-10 10:41 | NUR ---
REC'D PT IN HALLWAY BY NURSES STATION. RESP EVEN AND NONLABORED. NO DISTRESS NOTED. CALM AND COOPERATIVE WITH ASSESSMENT. MED COMPLIANT. REDIRECT AND REORIENT NEEDED. PT AWAKE AND ALERT TO PERSON. WILL CONT TO MONITOR Q 15 MINS FOR SAFETY. WILL CPOC.
--- NOTE | 2018-09-10 15:21 | PN ---
PATIENT:OMARI HARLEY MEDICAL RECORD: [id number] LOCATION:[facility] ADMISSION DATE: 08/25/18 PROGRESS NOTE DATE OF SERVICE: 09/09/2018 SUBJECTIVE: The patient's case was discussed with staff. She has no new complaint. OBJECTIVE: The patient denies intent to harm herself or others. She is partially oriented. She denies overt psychotic symptoms; but then, after I had spoken with her and was just talking to one of the nurses in the day room, I observed her carrying on a conversation with someone not present. ASSESSMENT: Paranoid schizophrenia. PLAN: The patient is going to be maintained on current medicines. Her long-term prognosis is guarded. Brief supportive and educational interventions were made. TRANSINT:[id number] Voice Confirmation ID: [id number] DOCUMENT ID: [id number] FREDDIE ESCOBEDO MD at 1521 CC: [id number] DICTATION DATE: 09/09/18 0950 MACHINE TRY OUT SETTER: 09/09/18 1219 ADM IN [place] [id number] [place] [id number]
--- NOTE | 2018-09-10 21:44 | NUR ---
RECEIVED IN DAYROOM. SITTING IN CHAIR AND WATCHING TV. CALM AND COOPERATIVE WITH CARE AND ASSESSMENT. NO SIGNS OF HALLUCINATIONS. REDIRECT AND REORIENT NEEDED. RESTING IN BED WITH EYES OPEN AT THIS TIME. CONTINUE PLAN OF CARE.
[2018-09-11 08:01] VITALS: BP 114/41
--- NOTE | 2018-09-11 09:39 | NUR ---
Nutrition Follow Up: Chart reviewed Diet: AHA PO Intake: 81% meal avg BM: 09/10/18 Meds and labs reviewed Rec continue current diet. Will continue to honor food preferences. RD following.
--- NOTE | 2018-09-11 11:36 | PN ---
PATIENT:OMARI HARLEY MEDICAL RECORD: [id number] LOCATION:[facility] ADMISSION DATE: 08/25/18 PROGRESS NOTE DATE OF SERVICE: 09/10/2018 SUBJECTIVE: The patient's case was discussed with staff. She has no new complaint. OBJECTIVE: The patient is much less delusional than she has previously been. She is tolerating her medications well. ASSESSMENT: Paranoid schizophrenia. PLAN: Current medicines have been reviewed and will be maintained. Her long-term prognosis is guarded. TRANSINT:[id number] Voice Confirmation ID: [id number] DOCUMENT ID: [id number] FREDDIE ESCOBEDO MD at 1136 CC: [id number] DICTATION DATE: 09/10/18 1541 BUREAU DIRECTOR: 09/10/18 1613 ADM IN [facility] [address] [place] [address]
--- NOTE | 2018-09-11 13:47 | NUR ---
PT IS ALERT AND ORIENTED TO PERSON AND PLACE. CALM AND COOPERATIVE WITH ASSESSMENT. CONTINUES TO TALK TO UNSEEN OTHERS, MED COMPLIANT. NO AGGRESSION NOTED. WILL CPOC.
[2018-09-11 20:14] VITALS: BP 131/65
--- NOTE | 2018-09-11 22:23 | NUR ---
RECEIVED IN DAYROOM. SITTING AT TABLE AND WATCHING TV. CALM AND COOPERATIVE WITH CARE AND ASSESSMENT. NO SIGNS OF DELUSIONS OR HALLUCINATIONS. REDIRECT AND REORIENT NEEDED. RESTING IN BED WITH EYES OPEN AT THIS TIME. CONTINUE PLAN OF CARE.
[2018-09-12 08:00] VITALS: BP 130/65
--- NOTE | 2018-09-12 14:15 | PN ---
PATIENT:OMARI HARLEY MEDICAL RECORD: [id number] LOCATION:[facility] ADMISSION DATE: 08/25/18 PROGRESS NOTE DATE OF SERVICE: 09/11/2018 SUBJECTIVE: The patient's case was discussed with staff. She has no new complaint. OBJECTIVE: The patient denies intent to harm herself or others. She is delusional and had some sort of a very convoluted nonreality based story about monkeys and humans being turned into each other. Despite the fact that her delusions are truly bizarre, she is not agitated or disruptive or distressed by them. ASSESSMENT: Paranoid schizophrenia. PLAN: Current medicines have been reviewed and will be maintained. Her long-term prognosis is guarded. I am going to discharge her back to the senior care tomorrow. I do believe that this is at or near her baseline level of functioning. TRANSINT:[id number] Voice Confirmation ID: [id number] DOCUMENT ID: [id number] FREDDIE ESCOBEDO MD at 1415 CC: [id number] DICTATION DATE: 09/11/18 1711 SOLUTIONS SPECIALIST: 09/11/18 [address] [facility] [address] [place] [address]
--- NOTE | 2018-09-12 14:22 | NUR ---
PT IS ALERT AND ORIENTED TO PERSON AND PLACE. CALM AND COOPERATIVE WITH ASSESSMENT. REDIRECT AND REORIENT NEEDED. MED COMPLIANT. NO AGGRESSION NOTED. WILL CPOC.
--- NOTE | 2018-09-12 20:30 | NUR ---
RECEIVED IN DAYROOM. SITTING IN CHAIR AND WATCHING TV. CALM AND COOPERATIVE WITH CARE AND ASSESSMENT. AGITATED. VISUAL AND AUDITORY HALLUCINATIONS NOTED. REDIRECT AND REORIENT NEEDED. CONTINUES TO SIT AND WATCH TV AT THIS TIME. CONTINUE PLAN OF CARE.
[2018-09-13 07:13] VITALS: BP 126/69
[2018-09-13 08:21] VITALS: BP 128/64
--- NOTE | 2018-09-13 11:25 | NUR ---
ORIENTED TO SELF AND HOSPITAL.OBSERVED HAVING VISUAL AND AUDITORY HALLUCINATIONS.COMPLIANT WITH MEDS AND STAFF.DISCHARGED TO [facility] STAFF HERE TO TRANSPORT VIA [facility].HAS ALL PERSONAL ITEMS AND INSTRUCTIONS.
--- NOTE | 2018-09-13 16:09 | PN ---
PATIENT:OMARI HARLEY MEDICAL RECORD: [id number] LOCATION:[facility] ADMISSION DATE: 08/25/18 PROGRESS NOTE DATE OF SERVICE: 09/12/2018 SUBJECTIVE: The patient's case was discussed with staff. She has no new complaint. OBJECTIVE: The patient denies intent to harm herself or others. She is generally tolerating her medicines well. She makes some delusional comments, but otherwise is calm and cooperative. ASSESSMENT: Paranoid schizophrenia. PLAN: I anticipate the patient can be discharged tomorrow. Apparently, there were some issues with the coordination of discharge for today. I think that this is fine and I have reviewed her medicines and spoken to her again and do believe that it is a very appropriate discharge at this time and that her level of psychotic symptoms are at or near her baseline. TRANSINT:[id number] Voice Confirmation ID: [id number] DOCUMENT ID: [id number] FREDDIE ESCOBEDO MD at 1609 CC: [id number] DICTATION DATE: 09/12/18 1443 REGIONAL LIAISON: 09/12/18 1512 DIS IN 09/13/18 [facility] [address] [place] [address]
--- NOTE | 2018-09-16 10:05 | DS ---
PATIENT:OMARI HARLEY :46 MEDICAL RECORD: [id number] DISCHARGE SUMMARY ADMISSION DATE: 08/25/18 DISCHARGE DATE: 09/13/18 IDENTIFYING DATA: The patient is 68 years old and she was referred to us by a local residential. The patient had been agitated at the facility. She was paranoid and delusional, believing that people were trying to poison her. She made suicidal statements. She was very disorganized. HOSPITAL COURSE: The patient was admitted to the hospital and fully evaluated from both a medical, psychological, and social standpoint. She is a person with a known history of schizophrenia and was treated with antipsychotic medications and showed improvement through the course of her hospitalization. She was subsequently transitioned back to the residential. DISCHARGE DIAGNOSES: AXIS I: Paranoid schizophrenia. AXIS II: None. AXIS III: COPD, hypothyroidism, and hypertension. AXIS IV: Moderate. AXIS V: Global assessment of functioning is 40. PLAN: At the time of discharge, the patient had some delusions, but they were not severe or intense and were probably at or close to her baseline level of delusional functioning. She had no evidence of acute or direct dangerousness to herself or others and did not believe that she was being poisoned or harmed in any way. Followup is to be with her primary care residential physician and her outpatient psychiatrist. TRANSINT:[id number] Voice Confirmation ID: [id number] DOCUMENT ID: [id number] FREDDIE ESCOBEDO MD at 1005 CC: [id number] DICTATION DATE: 09/15/18 1113 CABLE MOCK UP ASSEMBLER: 09/16/18 0556 DIS IN 09/13/18 [place] [id number] [place] [address]
== END 2018-09-13 11:25 | DRG 885 ==
LOC: D.PSYCH 16:42
PROVIDERS: Psychiatry & Neurology Psychiatry; ADMIT Psychiatry & Neurology Psychiatry; ATTEND Psychiatry & Neurology Psychiatry
DX: F20.0 Paranoid schizophrenia (principal); J18.1 Lobar pneumonia, unspecified organism; J44.0 Chronic obstructive pulmonary disease with (acute) lower respiratory infection; J44.1 Chronic obstructive pulmonary disease with (acute) exacerbation; F17.213 Nicotine dependence, cigarettes, with withdrawal; J44.9 Chronic obstructive pulmonary disease, unspecified; E03.9 Hypothyroidism, unspecified; I10 Essential (primary) hypertension; E55.9 Vitamin D deficiency, unspecified; K59.09 Other constipation; M21.612 Bunion of left foot; M21.611 Bunion of right foot; B35.1 Tinea unguium; M20.12 Hallux valgus (acquired), left foot; M20.11 Hallux valgus (acquired), right foot